=== PATIENT | female | born 1990 | race Caucasian/White ===

== ENCOUNTER → 2022-02-19 | Emergency (ER) | payer MEDICAID ==
[~2022-02-19] VITALS: Ht 154.9 cm; Wt 65.8 kg
[2022-02-19 19:38] VITALS: BP_SYST 119
--- NOTE | 2022-02-19 19:44 | NUR ---
Patient triaged and placed in waiting room. VSS and patient appears in no acute distress at this time. Accompanied by SELF, awaiting available bed, and MD notified of need for MSE.
--- NOTE | 2022-02-19 20:00 | NUR ---
Note jorge luis in [facility] - 03/02/22 at 1320 by VINH Patient left without being seen.
--- NOTE | 2022-02-19 23:08 | NUR ---
Patient left without being seen.
== END | disposition left against medical advice (07) ==
LOC: SED 19:04
DX: S69.91XA Unspecified injury of right wrist, hand and finger(s), initial encounter (principal); Z53.21 Procedure and treatment not carried out due to patient leaving prior to being seen by health care provider; X58.XXXA Exposure to other specified factors, initial encounter; Y93.89 Activity, other specified; Y92.89 Other specified places as the place of occurrence of the external cause; Y99.8 Other external cause status
CPT/HCPCS: 99283